=== PATIENT | female | born 1945 | race African-American/Black ===

== ENCOUNTER 2018-08-08 09:30 | Inpatient (IN) | payer MEDICARE, MEDICAID ==
[~2018-08-08] VITALS: Ht 157.5 cm; Wt 81.4 kg
[~2018-08-08 09:30] MED LIST: AMLO10TA80 PO; ASPI-518 PO; DEXL30CA3 PO; GLIP10TA10 PO; LORA-458 PO
[2018-08-08] MEDS ORDERED: OMEP40CA34 PO (09:50)
[2018-08-08] MEDS ORDERED: LOSA50TA20 PO (09:50)
[2018-08-08] MEDS ORDERED: VIT1TABL5 PO (09:50)
[2018-08-08] MEDS ORDERED: RANI300C8 PO (09:50)
[2018-08-08] MEDS ORDERED: DULO60CA63 PO (09:50)
[2018-08-08] MEDS ORDERED: GLIM4TAB2 PO (09:50)
[2018-08-08] MEDS ORDERED: EZET10TA26 PO (09:50)
[2018-08-08 11:13] LABS: BASOPHILS % 0.5 % (0.0-2.0); EOSINOPHILS % 2.2 % (0.0-5.0); HEMATOCRIT. 37.2 % (36.0-48.0); HEMOGLOBIN. 12.2 g/dL (12.0-16.0); LYMPHOCYTES % 30.4 % (20.0-50.0); MEAN CORPUSCULAR HEMOGLOBIN 27.4 pg (28.0-32.0); MEAN CORPUSCULAR VOLUME 83.9 fL (81.0-99.0); MEAN PLATELET VOLUME 7.2 fl (7.4-10.4); MONOCYTES % 10.5 % (2.0-8.0); NEUTROPHILS % 56.4 % (40.0-76.0); PLATELET 267 x1000/uL (130-400); RED BLOOD CELL COUNT 4.44 mill/uL (4.2-5.4); RED CELL DISTRIBUTION WIDTH 14.9 % (11.6-14.6)
[2018-08-08 11:18] LABS: CHLORIDE 107 mEq/L (98-107)
[2018-08-08 11:22] LABS: PARTIAL THROMBOPLASTIN TIME 29.4 sec (23.4-31.0)
[2018-08-08 14:25] VITALS: BP_SYST 107; BP_DIAS 64; BP_DIAS 67
[2018-08-08 16:00] VITALS: BP 138/68
[2018-08-08] MEDS ORDERED: IPRATROPIUM/ALBUTEROL 0.5-3(2.5)MG/3ML NEB INH PRN (17:00)
[2018-08-08] MEDS ORDERED: ACETAMINOPHEN 325MG TABLET PO PRN (17:00)
[2018-08-08] MEDS ORDERED: CLONIDINE 0.1MG TABLET PO PRN (17:00)
[2018-08-08] MEDS ORDERED: ONDANSETRON HCL 4MG/2ML INJ IV PRN (17:00)
[2018-08-08] MEDS ORDERED: HYDROCODONE/ACETAMINOPHEN 5/325MG TABLET PO PRN (17:00)
[2018-08-08] MEDS ORDERED: DEXTROSE 50% WATER 50ML SYRINGE IV PRN (19:00)
[2018-08-08 20:00] VITALS: BP 133/70
[2018-08-08] MEDS: PANTOPRAZOLE 80 MG in SODIUM CHLORIDE 0.9% 100 ML IV SCH (21:08)
[2018-08-08] MEDS: BLOOD SUGAR DIAGNOSTIC STRIP TEST SCH (21:08)
[2018-08-08] MEDS: INSULIN LISPRO 100 UNITS/ML SUBCUT SCH (21:16)
[2018-08-09] VITALS: BP 132/71
[2018-08-09 01:23] LABS: HEMOGLOBIN 11.5 g/dL (12.0-16.0)
[2018-08-09 04:00] VITALS: BP 113/67
[2018-08-09] MEDS: PANTOPRAZOLE 80 MG in SODIUM CHLORIDE 0.9% 100 ML IV SCH ×2 (06:46→15:00)
[2018-08-09 06:47] LABS: BASOPHILS % 0.6 % (0.0-2.0); EOSINOPHILS % 1.9 % (0.0-5.0); HEMATOCRIT. 34.2 % (36.0-48.0); HEMOGLOBIN. 11.3 g/dL (12.0-16.0); MEAN CORPUSCULAR HEMOGLOBIN 27.6 pg (28.0-32.0); MEAN CORPUSCULAR VOLUME 83.1 fL (81.0-99.0); MEAN PLATELET VOLUME 6.9 fl (7.4-10.4); MONOCYTES % 11.3 % (2.0-8.0); NEUTROPHILS % 56.2 % (40.0-76.0); PLATELET 265 x1000/uL (130-400); RED BLOOD CELL COUNT 4.11 mill/uL (4.2-5.4); RED CELL DISTRIBUTION WIDTH 14.8 % (11.6-14.6)
[2018-08-09] MEDS: BLOOD SUGAR DIAGNOSTIC STRIP TEST SCH ×4 (06:50→21:59)
[2018-08-09] MEDS: INSULIN LISPRO 100 UNITS/ML SUBCUT SCH ×4 (06:51→21:00)
[2018-08-09 06:58] LABS: CHLORIDE 108 mEq/L (98-107)
[2018-08-09 07:19] LABS: T4 FREE 1.11 ng/dL (0.76-1.46)
[2018-08-09 07:21] LABS: LDL CHOLESTEROL 93 mg/dL (5-100)
[2018-08-09 07:22] LABS: HDL CHOLESTEROL 27 mg/dL (40-59)
[2018-08-09 08:00] VITALS: BP 134/69
[2018-08-09 12:00] VITALS: BP 115/66
[2018-08-09 12:54] LABS: HEMATOCRIT 34.5 % (36.0-48.0); HEMOGLOBIN 11.3 g/dL (12.0-16.0)
[2018-08-09] MEDS: METRONIDAZOLE 500 MG PREMIX 100 ML IV SCH ×2 (13:40→17:45)
[2018-08-09] MEDS: LEVOFLOXACIN 500MG PREMIX 100 ML IV SCH (14:51)
[2018-08-09 16:00] VITALS: BP 122/65
[2018-08-09 20:02] VITALS: BP 122/69
[2018-08-10 00:18] VITALS: BP 120/60
[2018-08-10] MEDS: PANTOPRAZOLE 80 MG in SODIUM CHLORIDE 0.9% 100 ML IV SCH ×2 (01:30→11:00)
[2018-08-10] MEDS: METRONIDAZOLE 500 MG PREMIX 100 ML IV SCH ×3 (04:29→17:46)
[2018-08-10 04:41] VITALS: BP 125/58
[2018-08-10 07:00] LABS: HEMATOCRIT 31.6 % (36.0-48.0); HEMOGLOBIN 10.4 g/dL (12.0-16.0); MEAN CORPUSCULAR HEMOGLOBIN 27.3 pg (28.0-32.0); MEAN CORPUSCULAR VOLUME 83.2 fL (81.0-99.0); PLATELET 243 x1000/uL (130-400); RED CELL DISTRIBUTION WIDTH 14.8 % (11.6-14.6)
[2018-08-10 07:17] LABS: CHLORIDE 109 mEq/L (98-107)
[2018-08-10 07:53] VITALS: BP 111/62
[2018-08-10] MEDS: INSULIN LISPRO 100 UNITS/ML SUBCUT SCH ×2 (09:18→13:50)
[2018-08-10 11:54] VITALS: BP 134/74
[2018-08-10] MEDS: BLOOD SUGAR DIAGNOSTIC STRIP TEST SCH ×2 (12:20→12:30)
[2018-08-10] MEDS: LEVOFLOXACIN 500MG PREMIX 100 ML IV SCH (12:56)
[2018-08-10 16:20] VITALS: BP 127/61
[2018-08-10 18:01] VITALS: BP 125/74
== END 2018-08-10 18:30 | disposition home or self-care (01) | DRG 393 ==
LOC: ER 09:57 → 6WST 12:20 → ENRESERV 13:26
PROVIDERS: ADMIT Internal Medicine; ATTEND Internal Medicine
DX: K63.5 Polyp of colon (principal); K57.33 Diverticulitis of large intestine without perforation or abscess with bleeding; K29.71 Gastritis, unspecified, with bleeding; E44.1 Mild protein-calorie malnutrition; D62 Acute posthemorrhagic anemia; E11.9 Type 2 diabetes mellitus without complications; G89.29 Other chronic pain; K21.9 Gastro-esophageal reflux disease without esophagitis; M19.90 Unspecified osteoarthritis, unspecified site; I10 Essential (primary) hypertension; F32.9 Major depressive disorder, single episode, unspecified; Z86.010 Personal history of colon polyps; Z79.84 Long term (current) use of oral hypoglycemic drugs; Z79.82 Long term (current) use of aspirin; Z79.899 Other long term (current) drug therapy; Z88.0 Allergy status to penicillin
CPT/HCPCS: 36415; 74176; 80048; 80053; 80061; 82962; 84439; 84443; 84481; 85014; 85018; 85025; 85027; 85610; 85730; 86850; 86900; 93005; 93970; 99285; C9113; J1815; J1956; J3490; J7050

== ENCOUNTER 2019-03-16 15:43 | Emergency (ER) | payer MEDICARE, MEDICAID ==
[~2019-03-16] VITALS: Ht 157.5 cm; Wt 73.0 kg
[~2019-03-16 15:43] MED LIST changes: -ASPI-518 PO; -DEXL30CA3 PO; +DULO60CA63 PO; +EZET10TA26 PO; +GLIM4TAB2 PO; -LORA-458 PO; +OMEP40CA34 PO; +RANI300C8 PO; +VIT1TABL5 PO
[2019-03-16] MEDS ORDERED: CYCLOBENZAPRINE 10MG TABLET PO ONE (17:30)
[2019-03-16] MEDS ORDERED: KETOROLAC 30MG/ML VIAL IM ONE (17:30)
[2019-03-16 18:37] VITALS: BP 132/78
== END 2019-03-16 18:48 | disposition home or self-care (01) ==
LOC: ER 15:43
DX: M54.2 Cervicalgia (principal); E11.9 Type 2 diabetes mellitus without complications; I10 Essential (primary) hypertension; Z88.0 Allergy status to penicillin; Z79.899 Other long term (current) drug therapy
CPT/HCPCS: 96372; 99283; J1885

== ENCOUNTER 2019-07-21 14:17 | Emergency (ER) | payer MEDICARE, MEDICAID ==
[~2019-07-21] VITALS: Ht 157.5 cm; Wt 85.0 kg
[~2019-07-21 14:17] MED LIST changes: -DULO60CA63 PO; +DULO60CA64 PO
[2019-07-21] MEDS ORDERED: ONDANSETRON HCL 4MG/2ML INJ IV STA (14:57)
[2019-07-21] MEDS ORDERED: ASPIRIN 81MG TABLET PO ONE (15:00)
[2019-07-21 15:29] LABS: BASOPHILS % 0.4 % (0.0-2.0); EOSINOPHILS % 2.2 % (0.0-5.0); HEMATOCRIT. 38.7 % (36.0-48.0); HEMOGLOBIN. 12.5 g/dL (12.0-16.0); LYMPHOCYTES % 26.9 % (20.0-50.0); MEAN CORPUSCULAR HEMOGLOBIN 25.5 pg (28.0-32.0); MEAN PLATELET VOLUME 6.9 fl (7.4-10.4); NEUTROPHILS % 57.5 % (40.0-76.0); PLATELET 257 x1000/uL (130-400); RED BLOOD CELL COUNT 4.91 mill/uL (4.2-5.4); RED CELL DISTRIBUTION WIDTH 18.4 % (11.6-14.6)
[2019-07-21 15:34] LABS: CHLORIDE 105 mEq/L (98-107)
[2019-07-21 15:38] LABS: D-DIMER 0.36 mg/L FEU (<0.50); ETHANOL BLOOD < 10 mg/dL; PARTIAL THROMBOPLASTIN TIME 28.5 sec (23.4-31.0); PROTHROMBIN TIME 10.3 sec (9.6-11.0)
[2019-07-21 17:33] LABS: CLARITY URINE CLEAR (CLEAR); COLOR URINE YELLOW (YELLOW); KETONES URINE NEGATIVE (NEGATIVE); LEUKOCYTE ESTERASE URINE NEGATIVE (NEGATIVE); NITRITE URINE NEGATIVE (NEGATIVE); OCCULT BLOOD URINE NEGATIVE (NEGATIVE); PH URINE 5.5 (4.5-8.0); PROTEIN URINE NEGATIVE (NEGATIVE); SPECIFIC GRAVITY URINE 1.021 (1.005-1.030); UROBILINOGEN URINE 0.2 E.U./dL (0.2-1.0)
[2019-07-21 17:44] LABS: *AMPHETAMINES SCREEN URINE NEGATIVE (NEGATIVE); *BARBITURATES SCREEN URINE NEGATIVE (NEGATIVE); *BENZODIAZEPINES SCREEN URINE NEGATIVE (NEGATIVE)
[2019-07-21 17:45] LABS: *COCAINE SCREEN URINE NEGATIVE (NEGATIVE); CANNABINOID URINE SCREEN NEGATIVE (NEGATIVE); METHADONE URINE SCREEN NEGATIVE (NEGATIVE); OPIATES URINE SCREEN NEGATIVE (NEGATIVE); PHENCYCLIDINE URINE SCREEN NEGATIVE (NEGATIVE)
[2019-07-21 19:37] VITALS: BP 146/69
== END 2019-07-21 19:45 | disposition short-term general hospital (02) ==
LOC: ER 14:17 → EDBEDREQ 18:20 → EDBEDREQTM 18:20 → CANBEDREQ 19:14 → ER 19:45
DX: R07.9 Chest pain, unspecified (principal); R06.02 Shortness of breath; R11.0 Nausea; K44.9 Diaphragmatic hernia without obstruction or gangrene; E11.9 Type 2 diabetes mellitus without complications; I10 Essential (primary) hypertension; M19.90 Unspecified osteoarthritis, unspecified site; Z88.0 Allergy status to penicillin
CPT/HCPCS: 36415; 71045; 71275; 80053; 80305; 80320; 81003; 83880; 84484; 85025; 85379; 85610; 85730; 93005; 96374; 99285; J2405; G0480

== ENCOUNTER 2019-09-13 18:27 | Emergency (ER) | payer MEDICARE, MEDICAID ==
[~2019-09-13] VITALS: Ht 167.6 cm; Wt 72.0 kg
[2019-09-13 18:47] VITALS: BP 142/76
== END 2019-09-13 22:35 | disposition left against medical advice (07) ==
LOC: ER 18:27
DX: N76.4 Abscess of vulva (principal); Z53.21 Procedure and treatment not carried out due to patient leaving prior to being seen by health care provider